=== PATIENT | female | born 1985 | race Caucasian/White ===

== ENCOUNTER 2019-01-24 12:27 | Emergency (ER) | payer OTHER ==
[~2019-01-24] VITALS: Ht 170.2 cm; Wt 90.7 kg
--- OUTSIDE RECORDS SUMMARY | 2019-01-24 12:29 | XMS REPORT ---
[facility] Address Unknown Phone Unavailable Care Team Providers Care Head Of Commission Department Name Role Phone Unavailable Unavailable Payers Payer Name Policy Type Policy Number Effective Date Expiration Date Problems This patient has no known problems. Allergies, Adverse Reactions, Alerts Allergy Name Allergy Type Status Severity Reaction(s) Onset Date Inactive Date Treating Clinician Comments No Known Allergies DA Active U 2018-04-03 00:00:00 latex DA Active SV 2018-04-03 00:00:00 latex DA Active U 2017-04-08 00:00:00 No Known Contrast Allergies DA Active U 2006-02-23 00:00:00 No Known Drug Allergies DA Active U 2006-02-23 00:00:00 No Known Food Allergies DA Active U 2006-02-23 00:00:00 No Known Other Allergies DA Active U 2006-02-23 00:00:00 Medications This patient has no known medications. Results Test Description Test Time Test Comments Text Results Atomic Results Result Comments [facility] 2018-04-08 12:55:00 RUN DATE: 04/08/18 [place] - [facility] PAGE 1 RUN TIME: 1255 Specimen Inquiry RUN USER: INTERFACE PATIENT: CHASTITY AVINA LOC: MAKAYLA U #: [id number] AGE/SX: ROOM: RE04/07/18REG DR: Carlos Enrique Pickering MD : [id number] BED: DIS: STATUS: [place] [facility] [place] SPEC #: [id number] RECD: 04/07/18 STATUS: ASHLYN REEmily #: [id number] JUD: 04/07/18- SUBM DR: Carlos Enrique Pickering MD ENTERED: 04/07/18 SP TYPE: STOMACH OTHR DR: Evangelista Lincoln DO ORDERED: GROSS COPIES TO: Carlos Enrique Pickering MD [address] [place] [id number] Evangelista Lincoln DO [address] [place] [id number] OR OCEDURES: GROSS (04/08/18-1236) TISSUES: 1. DUODENUM, NOS - BX 2. ANTRAL BIOPSY - H-PYLORI 3. COLON, NOS - TERMINAL ILEUM BX 4. COLON, NOS - RANDOM BX CLINICAL HISTORY COLLECTION DATE: 04/07/18 NAUSEA, VOMITING, DIARRHEA, CROHN'S POST-OP DIAGNOSIS: PYLORIC CHANNEL STRICTURE, GASTRITIS, DISTAL ESOPHAGITIS, MILD PATCHY LEFT SIDED COLITIS FINAL DIAGNOSIS Small intestine, duodenum second portion, biopsy: SMALL INTESTINAL MUCOSA, NO PATHOLOGIC ALTERATIONS NO EVIDENCE OF CELIACS SPRUE NEGATIVE FOR MALIGNANCY Stomach, antrum, biopsy: MILD FOCAL PATCHY CHRONIC GASTRITIS NO ACUTE INFLAMMATORY INFILTRATES IDENTIFIED CONTROLLED GIEMSA STAIN NEGATIVE FOR HELICOBACTER ORGANISMS NEGATIVE FOR MALIGNANCY Small intestine, terminal ileum, biopsy: SMALL INTESTINAL MUCOSA, NO SIGNIFICANT PATHOLOGIC ALTERATIONS CONTINUED ON NEXT PAGE RUN DATE: 04/08/18 [facility] PAGE 2 RUN TIME: 1255 Specimen Inquiry RUN USER: INTERFACE SPEC #: [id number] PATIENT: CHASTITY AVINA #[id number] (Continued) FINAL DIAGNOSIS (Continued) Random colon, biopsy: COLONIC MUCOSA WITH EDEMATOUS CHANGES AND A PROMINENT LYMPHOID AGGREGATE FOCALLY EXTENDING TO THE SURFACE EPITHELIUM NO ACUTE INFLAMMATORY INFILTRATES IDENTIFIED NEGATIVE FOR MALIGNANCY CLINICAL CORRELATION RECOMMENDED KAREN/ Robert [id number], [id number] MACROSCOPIC The first specimen is received in formalin, labeled with the patient's name, identified as "duodenum 2nd portion bx", and consists of multiple lopez-pink biopsy tissue measuring 0.8 cm in aggregate, submitted as (1 ). The second specimen is received in formalin, labeled with the patient's name, identified as "antrum bx", and consists of three lopez biopsy tissue ranging from 0.4 to 0.6 cm each, submitted as (2) for H E and Giemsa stains. The third specimen is received in formalin, labeled with the patient's name, identified as "terminal ileum bx", and consists of lopez biopsy tissue measuring 0.2 cm, submitted as (3). The fourth specimen is received in formalin, labeled with the patient's name, identified as "random colon bx", and consists of multiple lopez-pink biopsy tissue measuring 1.0 cm in aggregate, submitted as (4). GROSS PERFORMED AT [facility] [address] [place] [id number] (p)[phone] MICROSCOPIC MICROSCOPIC PERFORMED AT [facility] All of the stains, including any controls performed, stain appropriately. [facility] [address] [place] [address] [id number] (p)[phone] CONTINUED ON NEXT PAGE RUN DATE: 04/08/18 [facility] PAGE 3 RUN TIME: 1255 Specimen Inquiry RUN USER: INTERFACE - SPEC #: [id number] PATIENT: CHASTIYT AVINA #[id number] (Continued) PERFORMING SITE Diagnosis performed at: [facility], [address] [place] [address] Signed SIGNATURE ON FILE Zoe Alfaro 04/08/18 1255 END OF REPORT
[2019-01-24] MEDS ORDERED: LIDOCAINE 1% W/EPINEPHRINE 20 ML VIAL INJ ONE (12:45)
[2019-01-24 13:37] VITALS: BP 138/86
== END 2019-01-24 13:30 | disposition home or self-care (01) ==
LOC: ER 12:27
DX: L02.31 Cutaneous abscess of buttock (principal); I10 Essential (primary) hypertension; E11.9 Type 2 diabetes mellitus without complications; K50.90 Crohn's disease, unspecified, without complications
CPT/HCPCS: 99282

== ENCOUNTER → 2020-01-07 | Day surgery (SDC) | payer OTHER ==
[~2020-01-07] MED LIST: ALIGN4 MG PO; HUMIRA40 MG/0.8 SQ; HUMULIN 70100 UNIT/1 SQ; IRON160 M1 PO; LEVEMIR FL100 UNIT/1 SC; TUMERIC PO; VITAMIN D350 MCG PO; ZOLOFT50 MG PO
--- NOTE | 2020-01-07 12:59 | Operative Report ---
DATE OF PROCEDURE: 01/07/2020 SURGEON: Carlos Enrique Pickering MD PROCEDURE: EGD with biopsies. INDICATIONS FOR EGD: Abdominal pain, bloating. REFERRING PHYSICIAN: Dr. Evangelista Lincoln. MEDICATIONS: The patient was done under MAC, please see anesthesiologist's note. PROCEDURE IN DETAIL: With the patient in left lateral decubitus position, a flexible fiberoptic Olympus gastroscope was introduced into the esophagus under direct visualization without any difficulty. There was some patchy erythema noted in distal esophagus. The scope was then advanced with ease into the stomach, mucosa overlying the antrum of the body revealed some patchy erythema and low-grade to moderate edema and biopsies were obtained and sent to stain for H pylori. An area of focal nodularity was noted in the upper body along the posterior wall and it was biopsied. Pylorus was normal contour and shape, was intubated with ease and the scope was advanced all the way to the second portion of the duodenum. Biopsies were obtained from the proximal second portion and duodenal bulb to rule out sprue. The scope was then withdrawn back into the stomach and retroflexed mucosa overlying the fundus and cardia appeared to be within normal limits. The scope was then straightened out and was subsequently withdrawn. The patient tolerated the procedure well. IMPRESSION: 1. Distal esophagitis, mild. 2. Gastritis, biopsied. Biopsies sent to stain for H pylori. 3. Focal nodularity, proximal body posterior wall, biopsied. 4. Rule out sprue. PLAN: Follow up histology. Initiate Protonix 40 mg one p.o. q.a.m. a.c. Thank you very much. Carlos Enrique Pickering MD [facility] [place]/ABHI /[id number] cc: Evangelista Lincoln DO
[2020-01-07 13:10] VITALS: BP 113/82
[2020-01-12 06:11] LABS: ENDOMYSIAL ANTIBODIES, IGA Negative (Negative)
== END | disposition home or self-care (01) ==
LOC: OR 10:33
PROVIDERS: ATTEND Internal Medicine Gastroenterology
DX: K29.70 Gastritis, unspecified, without bleeding (principal); K20.9 Esophagitis, unspecified; K31.89 Other diseases of stomach and duodenum; K50.90 Crohn's disease, unspecified, without complications; K59.09 Other constipation; E11.9 Type 2 diabetes mellitus without complications; F17.210 Nicotine dependence, cigarettes, uncomplicated; Z91.040 Latex allergy status; Z01.810 Encounter for preprocedural cardiovascular examination; Z01.812 Encounter for preprocedural laboratory examination; Z11.59 Encounter for screening for other viral diseases; Z79.4 Long term (current) use of insulin; Z68.33 Body mass index [BMI] 33.0-33.9, adult
CPT/HCPCS: 36415; 43239; 81025; 82784; 82948; 83516; 86256; 87635; 93005